=== PATIENT | male | born 1975 | race Caucasian/White ===

== ENCOUNTER 2023-03-15 01:02 | Emergency (ER) | payer BC, OTHER | END 2023-03-15 02:07 | disposition home or self-care (01) | LOC: JD.ED 01:02 | DX: S61.211A Laceration without foreign body of left index finger without damage to nail, initial encounter (principal); I10 Essential (primary) hypertension; W26.8XXA Contact with other sharp object(s), not elsewhere classified, initial encounter | CPT/HCPCS: 99282; 99283 ==